=== PATIENT | female | born 1930 | race Caucasian/White ===

== ENCOUNTER 2017-06-21 21:40 | Inpatient (IN) | payer MEDICARE, MEDICAID ==
--- NOTE | 2017-06-21 22:14 | ED Physician Chart ---
ED Chief Complaint/HPI - Patient Information Date Seen:: 06/21/17 Time Seen:: 22:10 Chief Complaint:: increased agitation History of Present Illness:: Patient has been exhibiting increased agitation and anxiety at her long term facility. Historian:: Patient Review:: Nurse's Note Reviewed, Transfer documents Reviewed ED Review of Systems - Review of Systems General/Constitutional: No fever, No chills Skin: No skin lesions Head: No headache Eyes: No loss of vision ENT: No earache Neck: No neck pain Cardio Vascular: No chest pain, No palpitations GI: No nausea, No vomiting, No diarrhea G/U: No dysuria, No hematuria Musculoskeletal: No bone or joint pain Endocrine: No polyuria Psychiatric: Prior psych history Hematopoietic: No bruising Allergic/Immuno: No urticaria Neurological: No syncope ED Past Medical History - Past Medical History Past Medical History: Other (hyponatremia and hypo-osmolality) Family History: None Social History: Non Smoker, No Alcohol, Care Facility Surgical History: Appendectomy, other (tubal ligation) Psychiatricy History: Other (anxiety) Medication: Reviewed Family Medical History - Family Member Mother History Unknown: Yes ED Physical Exam - Physical Examination General/Constitutional: Well-developed, well-nourished, Alert, No distress Other Gen/Cons comments:: Alert and oriented to the correct date Head: Atraumatic Eyes: Lids, conjuctiva normal, PERRL Skin: Nl inspection, No rash, No skin lesions, No ecchymosis ENMT: External ears, nose nl, Oropharynx nl, Tonsils nl Other ENMT comments:: Edentulous Neck: No nuchal rigidity Respiratory: Nl effort/Exclusion, Clear to Auscultation, No Wheeze/Rhonchi/Rales Cardio Vascular: RRR, No murmur, gallop, rubs, NL S1 S2 GI: No tenderness/rebounding/guarding, No organomegaly, No hernia, Normal BS's : No CVA tenderness Extremities: Normal digits & nails Neuro/Psych: No focal deficits ED Labs/Radiology/EKG Results - Lab Results Results: Laboratory Results - last 24 hr 06/21/17 06/21/17 23:15 23:15 WBC 7.3 RBC 3.55 L Hgb 12.9 Hct 36.8 L MCV 103.5 H MCH 36.4 H MCHC Differential 35.1 RDW 12.3 Plt Count 305 MPV 6.3 Neutrophils % 62.3 Lymphocytes % 24.5 Monocytes % 8.7 Eosinophils % 3.6 Basophils % 0.9 Urine Source CLEAN C Urine Color YELLOW Urine Clarity HAZY Urine pH 6.0 Ur Specific [place] 1.025 Urine Protein TRACE Urine Glucose (UA) NEGATIVE Urine Ketones NEGATIVE Urine Blood NEGATIVE Urine Nitrate NEGATIVE Urine Bilirubin NEGATIVE Urine Urobilinogen 0.2 Ur Leukocyte Esterase TRACE H Urine RBC 0-2 Urine WBC 2-5 Ur Epithelial Cells MODERATE Urine Bacteria FEW - EKG Interpretations Rate & Rhythm: normal sinus rhythm with a rate of 72 [place]: left axis deviation Comments:: Right bundle-branch block ED Septic Shock - . Is Septic Shock (SBP<90, OR Lactate>4 mmol\L) present?: No ED Reassessment (Disposition) - Reassessment Reassessment Condition:: Unchanged - Diagnosis Diagnosis:: Agitation; hyponatremia; hypokalemia - Patient Disposition Admitted to:: [facility] Admitting Medical Physician:: Ernie Ramon Admitting Psych Physician:: Alexia Mckeon Condition at Disposition:: Unchanged
[2017-06-21 23:26] LABS: URINE MICROSCOPIC INDICATED? YES; URINE SOURCE CLEAN C
[2017-06-21 23:28] LABS: % BASOPHILS 0.9 % (0.0-2.0); % EOSINOPHILS 3.6 % (0.0-5.0); % LYMPHOCYTES 24.5 % (20.0-50.0); % MONOCYTES 8.7 % (2.0-10.0); % NEUTROPHILS 62.3 % (40.0-80.0); BASOPHILE ABSOLUTE 0.1 Th/cumm (0-0.2); EOSINOPHILE ABSOLUTE 0.3 Th/cmm (0.1-0.4); HEMATOCRIT 36.8 % (41.0-60); HEMOGLOBIN 12.9 gm/dL (12-16); LYMPHOCYTE ABSOLUTE 1.8 Th/cmm (1.5-3.0); MEAN CELL VOLUME 103.5 fl (81-100); MEAN CORPUSCULAR HEMOGLOBIN 36.4 pg (27.0-31.0); MEAN CORPUSCULAR HGB CONC 35.1 pg (28.0-36.0); MEAN PLATELET VOLUME 6.3 fl; MONOCYTE ABSOLUTE 0.6 Th/cmm (0.3-1.0); NEUTROPHILE ABSOLUTE 4.5 Th/cmm (1.8-8.0); PLATELET COUNT 305 Th/cmm (150-400); RED BLOOD COUNT 3.55 Mil/cmm (3.80-5.20); RED CELL DISTRIBUTION WIDTH 12.3 % (11.5-20.0); WHITE BLOOD COUNT 7.3 Th/cmm (4.8-10.8)
[2017-06-21 23:30] LABS: URINE BILIRUBIN NEGATIVE (NEGATIVE); URINE BLOOD NEGATIVE (NEGATIVE); URINE GLUCOSE (UA) NEGATIVE (NEGATIVE); URINE KETONE NEGATIVE (NEGATIVE); URINE LEUKOCYTE ESTERASE TRACE (NEGATIVE); URINE NITRATE NEGATIVE (NEGATIVE); URINE PROTEIN TRACE mg/dL (NEGATIVE); URINE UROBILINOGEN 0.2 E.U./dL (0.2 - 1.0)
[2017-06-21 23:44] LABS: URINE BACTERIA FEW /hpf (NONE SEEN); URINE CLARITY HAZY (CLEAR); URINE COLOR YELLOW; URINE EPITHELIAL CELLS MODERATE /lpf (FEW); URINE RBC 0-2 /hpf (0-5)
[2017-06-21 23:52] LABS: ALB/GLOB RATIO 1.2 (1.0-1.8); ALKALINE PHOSPHATASE 65 U/L (34-104); ANION GAP 10.1 (7.0-16.0); BILIRUBIN,TOTAL 0.5 mg/dL (0.3-1.0); BUN - UREA NITROGEN 23 mg/dL (7-25); CALCIUM SERUM 9.9 mg/dL (8.6-10.3); CARBON DIOXIDE 25.3 mEq/L (21.0-31.0); CHLORIDE 97 mEq/L (98-107); CHOLESTEROL 202 mg/dL (<200); CREATININE - SERUM 0.7 mg/dL (0.6-1.2); GLUCOSE 95 mg/dL (70-105); HDL -HIGH DENSITY LIPOPROTEIN 69 mg/dL (23-92); POTASSIUM SERUM 3.4 mEq/L (3.5-5.1); SGOT 15 U/L (13-39); SGPT/ALT 8 U/L (7-52); SODIUM SERUM 129 mEq/L (136-145); TOTAL PROTEIN,SERUM 7.4 gm/dL (6.0-8.3); TRIGLYCERIDES 78 mg/dL (<150)
[2017-06-22] MEDS ORDERED: Potassium Chloride 20 mEq ER Tab PO ONE ×2 (00:13→00:14)
[2017-06-22 01:37] VITALS: BP 120/93
[2017-06-22] MEDS ORDERED: Magnesium Hydroxide (MOM) 30 mL UDC PO PRN (03:35)
[2017-06-22] MEDS ORDERED: APAP/Codeine 300 mg/30 mg Tab PO PRN (03:35)
[2017-06-22 16:42] LABS: A1C % 5.3 % (4.0-6.0)
--- NOTE | 2017-06-23 02:59 | Psychosocial Evaluation ---
DATE OF SERVICE: 06/22/2017 IDENTIFYING DATA: The patient is an 86-year-old woman, resident of [facility]. Information obtained by directly interviewing the patient as well as reviewing the admission papers and they are reliable. JUSTIFICATION OF HOSPITALIZATION: The patient is admitted here on a voluntary basis and because of her acute agitation and paranoia. CHIEF COMPLAINT: "There are a lot many things are happening. I can tell you one thing, but they have to help me to go to the bathroom all the time." HISTORY OF PRESENT ILLNESS: This is the first psychiatric hospitalization to [facility] for this 86-year-old woman who is reported to have been having difficult time to cope with the stress. On the day of the hospitalization, the patient has been reported to have been acutely agitated and has been having difficult time to cope with the stress. The patient is reported to have been having difficult time to verbalize the concerns. The patient is getting easily frustrated. The patient is also noted to be very paranoid and has been mentioning that people have been bothering her a lot and she could not cope with it any longer. The patient is reported to have been getting easily frustrated. It is becoming very difficult to redirect the patient. The patient is fixated on her bowels and then lot of somatic complaints are coming forward. PAST PSYCHIATRIC HISTORY: Details are not known. MEDICAL HISTORY: Physical examination is requested to be done by Dr. Ramon. SUBSTANCE ABUSE HISTORY: None. PHYSICAL OR SEXUAL ABUSE HISTORY: None. LEGAL PROBLEMS: None at this time. STRENGTH AND ASSETS: The patient is motivated. MENTAL STATUS EXAMINATION: The patient is an 86-year-old woman looking her stated age, superficially cooperative. Eye contact is poor. Mood is irritable. Affect is constricted. The patient is religiously and somatically preoccupied. The patient is not able to contract for safety. The patient has been having difficult time to cope with the stress. Keeps on talking about that the need for her to go to the bathroom. The patient is motivated for treatment at this time. However, the patient has short-term as well as long-term memory deficits. Attention span and concentration are noted to be poor at this time. DIAGNOSTIC IMPRESSION: AXIS I: Psychotic disorder, not otherwise specified. AXIS IB: Dementia and behavioral change, secondary trait. AXIS II: None. AXIS III: As per Dr. Ramon. IMMEDIATE TREATMENT PLAN: The patient is going to be observed on inpatient unit, provided with supportive psychotherapy. The patient is going to be started on a low dose of the Seroquel and followed up. JOB# [id number]
--- NOTE | 2017-06-24 03:03 | Progress Notes ---
DATE: 06/23/2017 PSYCHIATRIC PROGRESS NOTE SUBJECTIVE: Staff was spoken to. The patient is interviewed. Mood is irritable. Affect is constricted. The patient is somatically preoccupied and has been asking to take the staff to the bathroom very frequently. The patient has no insight into her illness. The patient has been having difficult time to articulate her needs. The patient's short as well as long-term memory both are noted to be impaired. ASSESSMENT: The patient is still paranoid and demented. PLAN: To continue the patient with the current medications and followup. JOB# [id number]
--- NOTE | 2017-06-25 02:34 | Consultation ---
DATE OF CONSULTATION: 06/23/2017 REQUESTING PHYSICIAN: Alexia Mckeon M.D. TYPE OF CONSULTATION: Psychology. HISTORY OF PRESENT ILLNESS: The following is by review of the medical record and by patient self report. According to record review, the patient is an 86-year-old female who was a resident of [facility]. The patient is being admitted because of acute agitation and paranoia. Staff at the patient's facility reports she had been getting easily frustrated and becoming difficult to redirect. The patient presents as easily agitated and having difficulty coping with stress. Upon interview, there seems to be perseveration on the patient's physical complaints. There is some evidence that perhaps these are somatic. The patient was focused on her GI functioning. The patient stated that she had become bothered by people at her facility and perhaps worried about the decline in her overall functioning. She denied any suicidal ideation, plan or intention. The patient did endorse the idea of helplessness and hopelessness. PAST MEDICAL HISTORY: Please see history and physical by Dr. Ramon. PAST PSYCHIATRIC HISTORY: Unknown at the time of this interview. MEDICATIONS: Please see admission reconciliation. ALLERGIES: No known drug allergies. SUBSTANCE ABUSE HISTORY: The patient denied any history. PSYCHOSOCIAL HISTORY: The patient is a resident of [facility]. The patient did not answer questions about family history. The patient did not answer questions about occupational or educational history. The patient states that she is a Confucianism. The patient states she does not want to return to her shelter facility. medical services coordinator has been informed. MENTAL STATUS EXAMINATION: The patient appears to be her stated age. The patient's attitude is superficially cooperative. Eye contact is poor. Speech is spontaneous, but slow at times. The patient has intermittent episodes of becoming loud. Mood is irritable. Affect is constricted. Thought process shows to be perseverated on her medical condition. The patient denied any auditory or visual hallucinations. She denies any suicidal ideation, plan or intention. However, the patient seems to have focused on religiosity and sheri-based beliefs to explain her current circumstances. The patient is stating that she seems to be having trouble with her bowel movement and asked for the LOCAL HAZMAT DRIVER to take her to the bathroom. The patient is passively accepting treatment. Impulse control is fair to poor. Concentration is poor. The patient did not perform serial 3 subtractions. The patient was unable to sustain focus and attention. The patient was minimally cognitively redirectable due to the perseveration on possible somatic complaints. The patient did not perform the memory evaluation. Immediate, short-term and long-term memory seem to be impaired. This needs further evaluation. Sensorium is alert and oriented to self and person only. The patient did not participate in the interpretation of proverbs. Insight is poor. Judgment is compromised. DIAGNOSTIC IMPRESSION: AXIS I: 1. Psychotic disorder, not otherwise specified. 2. Dementia with behavioral disturbance. AXIS II: Deferred. AXIS III: Please see history and physical by Dr. Ramon. TREATMENT PLAN: The patient has been seen by Dr. Mckeon for psychiatric evaluation and for the management of the patient's psychotropic medications. We will provide supportive therapy to include reality integration and reality orientation. We will provide a simple de-escalation skill for the patient to increase her ability to cope with stress. We will include stress management to increase the patient's frustration tolerance. We will provide coping strategies for phase of life issues. We will continue to provide motivational enhancement for the patient to become compliant and stay compliant with all aspects of her care and treatment plan during her hospital stay and prior to discharge. Thank you, Dr. Mckeon, for this consult and the opportunity to participate with you in your patient's care. JOB# [id number] [email or web address]
--- NOTE | 2017-06-25 03:48 | Progress Notes ---
DATE: 06/24/2017 SUBJECTIVE: Staff was spoken to. The patient is interviewed. Mood is noted to be irritable. Affect is constricted. Coping skills are noted to be very poor. The patient has been fixated on her bowels and the patient in 1 minute stating that she is constipated, she needs to be taken to the bathroom, and in the next minute, the patient has been stating that she has been having diarrhea. The patient has no insight into her illness. ASSESSMENT: The patient is still grossly psychotic. PLAN: To continue the patient with the supportive therapy. I encouraged the patient to verbalize the concerns rather than to act out. The patient has been placed on the Seroquel 12.5 mg, which is going to be gradually increased to 25 mg today in view of her paranoia and the patient is going to be followed up. JOB# [id number]
--- NOTE | 2017-06-26 01:34 | Progress Notes ---
DATE: 06/25/2017 SUBJECTIVE: Staff was spoken to. The patient is interviewed. Mood is noted to be irritable. Affect is constricted. Insight and judgment at this time are noted to be still impaired. Impulse control seems to be limited. Coping skills are noted to be very limited. The patient has been having difficult time to cope with the stress. The patient is somatically preoccupied. The patient has short-term memory deficits. Long-term memory seems to be fair today. ASSESSMENT: The patient is still depressed and psychotic. PLAN: To continue the patient with the supportive therapy. I encouraged the patient to verbalize the concerns rather than to act out. JOB# [id number]
--- NOTE | 2017-06-27 01:27 | Progress Notes ---
DATE: 06/26/2017 SUBJECTIVE: Staff was spoken to. The patient is interviewed. Mood is noted to be anxious. The patient's coping skills are noted to be very poor. The patient has been preoccupied with the bowel movement. The patient has been stating that she needs to go to the toilet so many times and no one is helping her. The patient's insight and judgment at this time are noted to be still impaired. No side effects to the medications are noted. ASSESSMENT: The patient is still paranoid and demented. PLAN: To continue the patient with the current medications and followup. JOB# [id number]
--- NOTE | 2017-06-27 18:49 | History & Physical ---
ADMIT DATE: 06/22/2017 HISTORY OF PRESENT ILLNESS: The patient is an 86-year-old female seen at [facility]. PAST MEDICAL HISTORY: Significant for possible coronary artery disease, peptic ulcer disease, gastritis, arthritis, and urinary urgency. SOCIAL HISTORY: No smoking, no alcohol abuse. OBSTETRIC HISTORY: P2 +0. Menses, postmenopausal. REVIEW OF SYSTEMS: No obvious vomiting, diarrhea, melena or hematochezia. The patient does have urinary urgency. Denies any fever, any hematuria or burning in urine. PHYSICAL EXAMINATION: GENERAL: Average female, in no obvious respiratory distress. VITAL SIGNS: Include a blood pressure of 140/80, heart rate 80, respiration rate of 18. SKIN: Showed no obvious cellulitis. HEENT: Normal conjunctivae. NECK: Supple. LUNGS: Show clear. HEART: First and second present. ABDOMEN: Soft, bowel sounds present. EXTREMITIES: Show arthritis. NEUROLOGIC: The patient has no focal motor deficit. LABORATORY DATA: Include white count 7.3, hemoglobin 12.9, hematocrit 36.8, platelet count 129, platelet count 305. Sodium 129, potassium 3.4, chloride 97, bicarbonate 25.3, BUN 23, creatinine 0.7, glucose 95. MEDICAL DIAGNOSES: Include hyponatremia, hypokalemia, coronary artery disease, peptic ulcer disease, gastritis, arthritis, osteoporosis and urinary urgency. TREATMENT PLAN: Sodium will be supplemented. Potassium will be supplemented. The patient will be started on Detrol-LA. Thank you, Dr. Mckeon for letting me to see your patient. JOB# [id number]
--- NOTE | 2017-06-28 03:39 | Progress Notes ---
DATE: 06/27/2017 SUBJECTIVE: Staff was spoken to. The patient is interviewed. Mood is noted to be dysphoric. Coping skills are noted to be poor. Insight and judgment are also noted very much impaired. No side effects to medications are noted. The patient has been having difficult time to cope with the stress. ASSESSMENT: The patient is still psychotic and somatically fixated. PLAN: To continue the patient with the current medications and follow her up. [facility]# [id number]
[2017-06-28 07:16] LABS: EOSINOPHILE ABSOLUTE 0.2 Th/cmm (0.1-0.4); HEMATOCRIT 34.8 % (41.0-60); HEMOGLOBIN 11.7 gm/dL (12-16); LYMPHOCYTE ABSOLUTE 0.8 Th/cmm (1.5-3.0); MANUAL DIFF REQUIRED? YES; MEAN CELL VOLUME 103.6 fl (81-100); MEAN CORPUSCULAR HEMOGLOBIN 34.7 pg (27.0-31.0); MEAN CORPUSCULAR HGB CONC 33.5 pg (28.0-36.0); MEAN PLATELET VOLUME 6.4 fl; MONOCYTE ABSOLUTE 0.6 Th/cmm (0.3-1.0); NEUTROPHILE ABSOLUTE 2.1 Th/cmm (1.8-8.0); PLATELET COUNT 283 Th/cmm (150-400); RED BLOOD COUNT 3.36 Mil/cmm (3.80-5.20); RED CELL DISTRIBUTION WIDTH 11.9 % (11.5-20.0)
[2017-06-28 07:28] LABS: WHITE BLOOD COUNT 3.7 Th/cmm (4.8-10.8)
[2017-06-28 07:46] LABS: ANION GAP 11.4 (7.0-16.0); BUN - UREA NITROGEN 15 mg/dL (7-25); CALCIUM SERUM 9.5 mg/dL (8.6-10.3); CARBON DIOXIDE 24.1 mEq/L (21.0-31.0); CHLORIDE 98 mEq/L (98-107); CREATININE - SERUM 0.6 mg/dL (0.6-1.2); GLUCOSE 89 mg/dL (70-105); POTASSIUM SERUM 3.5 mEq/L (3.5-5.1); SODIUM SERUM 130 mEq/L (136-145)
[2017-06-28 07:57] LABS: BASOPHIL 1 % (0-3); EOSINOPHIL 3 % (0-5); LYMPHOCYTE 25 % (20-50); MONOCYTE 7 % (2-10); NEUTROPHILS 64 % (40-80); PLATELET ESTIMATE ADEQUATE (NORMAL); TOTAL CELLS COUNTED 100
[2017-06-28] MEDS ORDERED: Tolterodine Tartrate 4 mg ER Cap PO SCH (09:00)
[2017-06-28] MEDS ORDERED: guaiFENesin 200 MG/10 ML UDC PO PRN (15:46)
--- NOTE | 2017-06-29 04:13 | Progress Notes ---
DATE: 06/27/2017 SUBJECTIVE: Staff was spoken. The patient is interviewed. Mood is noted to be anxious. Affect is appropriate. Insight is admitted to be improving. Impulse control seems to be fair. No psychiatric medications ____. The patient has been able to verbalize the concerns rather than to act out at the time of the discharge process. ASSESSMENT: The patient is stabilizing. PLAN: To discharge the patient today for followup on outpatient basis. JOB# [id number]
== END 2017-06-28 19:00 | DRG 885 ==
LOC: ER 21:40 → GERO2 06-22 00:12
PROVIDERS: ADMIT Psychiatry & Neurology Psychiatry; ATTEND Psychiatry & Neurology Psychiatry
DX: F29 Unspecified psychosis not due to a substance or known physiological condition (principal); E87.1 Hypo-osmolality and hyponatremia; F03.91 Unspecified dementia, unspecified severity, with behavioral disturbance; I45.10 Unspecified right bundle-branch block; E87.6 Hypokalemia; Z98.51 Tubal ligation status; R45.1 Restlessness and agitation; I25.10 Atherosclerotic heart disease of native coronary artery without angina pectoris; K27.9 Peptic ulcer, site unspecified, unspecified as acute or chronic, without hemorrhage or perforation; K29.70 Gastritis, unspecified, without bleeding; M19.90 Unspecified osteoarthritis, unspecified site; M81.0 Age-related osteoporosis without current pathological fracture; R39.15 Urgency of urination
CPT/HCPCS: 36415-UA; 80048-TC; 80053-TC; 80061-TC; 81001-TC; 83036-90; 84443-TC; 85007-TC; 85025-TC; 85027-TC; 86592-TC; 93005; Z7610

== ENCOUNTER 2018-01-02 11:05 | Inpatient (IN) | payer MEDICARE, OTHER ==
--- NOTE | 2018-01-02 11:28 | ED Physician Chart ---
ED Chief Complaint/HPI - Patient Information Date Seen:: 01/02/18 Time Seen:: 11:00 Chief Complaint:: Agitation History of Present Illness:: onset x 3 days of agitation and aggressive behavior; no report of trauma, H/As, S/T, neck pain, C/P, SOB, cough, Abd. Pain, A/N/V/D/C, fever, chills, or urinary s/s; no SIs Allergies:: Allergies Allergy/AdvReac Type Severity Reaction Status Date / Time No Known Allergies Allergy Verified 01/02/18 11:21 Historian:: Patient, EMS Review:: Nurse's Note Reviewed, Old Chart Reviewed, EMS run form Reviewed ED Review of Systems - Review of Systems General/Constitutional: No fever, No chills, No weight loss, No weakness, No diaphoresis, No edema, No loss of appetite Skin: No skin lesions, No rash, No bruising Head: No headache, No light-headedness Eyes: No loss of vision, No pain, No diplopia ENT: No earache, No nasal drainage, No sore throat, No tinnitus Neck: No neck pain, No swelling, No thyromegaly, No stiffness, No mass noted Cardio Vascular: No chest pain, No palpitations, No PND, No orthopnea, No edema Pulmonary: No SOB, No cough, No sputum, No wheezing GI: No nausea, No vomiting, No diarrhea, No pain, No melena, No hematochezia, No constipation, No hematemesis G/U: No dysuria, No frequency, No hematuria, No nacturia Brand Advisor: No vaginal discharge, No abnormal vaginal bleed, No contraction Musculoskeletal: No bone or joint pain, No back pain, No muscle pain Endocrine: No polyuria, No polydipsia Psychiatric: Prior psych history, Depression, Anxiety, No suicidal ideation, No homicidal ideation, No auditory hallucination, No visual hallucination Hematopoietic: No bruising, No lymphadenopathy Allergic/Immuno: No urticaria, No angioedema Neurological: No syncope, No focal symptoms, No weakness, No paresthesia, No headache, No seizure, No dizziness, Confusion, No vertigo ED Past Medical History - Past Medical History Obtainable: Yes Past Medical History: HTN, Dyslipidemia, Arthritis, Dementia Family History: HTN Social History: Non Smoker, No Alcohol, No Drug Use, , Care Facility Surgical History: None Psychiatricy History: Bipolar, Dementia Medication: Reviewed Family Medical History - Family Member Mother History Unknown: Yes Ethnicity: Unknown Living Status: Unknown Hx Family Cancer: (unknown) Hx Family Coronary Artery Disease: (unknown) Hx Family Congestive Heart Failure: (unknown) Hx Family Hypertension: (unknown) Hx Family Stroke: (unknown) Hx Family Diabetes: (unknown) Hx Family Seizures: (unknown) Hx Family Dementia: (unknown) Hx Family AIDS: (unknown) Hx Family HIV: No Hx Family COPD: (unknown) Hx Family Hepatitis: (unknown) Hx Family Psychiatric Problems: (unknown) Hx Family Tuberculosis: (unknown) ED Physical Exam - Physical Examination General/Constitutional: Awake, Well-developed, well-nourished, Alert, No distress, GCS 15, Non-toxic appearing, Ambulatory Head: Atraumatic Eyes: Lids, conjuctiva normal, PERRL, EOMI Skin: Nl inspection, No rash, No skin lesions, No ecchymosis, Well hydrated, No lymphadenopathy ENMT: External ears, nose nl, TM canals nl, Nasal exam nl, Lips, teeth, gums nl , Oropharynx nl, Tonsils nl Neck: Nontender, Full ROM w/o pain, No JVD, No nuchal rigidity, No bruit, No mass, No stridor Respiratory: Nl effort/Exclusion, Clear to Auscultation, No Wheeze/Rhonchi/Rales Cardio Vascular: RRR, No murmur, gallop, rubs, NL S1 S2, Carotid/Femoral/Distal pulses equal bilaterally GI: No tenderness/rebounding/guarding, No organomegaly, No hernia, Normal BS's, Nondistended, No mass/bruits, No McBurney tenderness : No CVA tenderness Extremities: No tenderness or effusion, Full ROM, normal strength in all extremities, No edema, Normal digits & nails Neuro/Psych: Alert/oriented, DTR's symmetric, Normal sensory exam, Normal motor strength, Judgement/insight normal, Mood normal, Normal gait, No focal deficits Other Neuro/Psych comments:: + Psychomotor Agitation; no SIs; Mood/Affect: Labile; Disoriented and Confused Misc: Normal back, No paraspinal tenderness ED Labs/Radiology/EKG Results - Lab Results Comments:: Reviewed - EKG Interpretations EKG Time:: 11:23 Rate & Rhythm: 94; NSR Comments:: non-specific st-t changes ED Septic Shock - . Is Septic Shock (SBP<90, OR Lactate>4 mmol\L) present?: No ED Reassessment (Disposition) - Reassessment Reassessment Condition:: Improved - Diagnosis Diagnosis:: Dx: Agitation; Psychosis; Medical Clearance; Dementia; Bipolar Disordeer - Aftercare/Follow up Instructions Aftercare/Follow-Up Instructions:: Counseled pt regarding lab results/diagnosis & need follow up, Counseled pt & family regarding lab results/diagnosis & need follow up - Patient Disposition Discharge/Transfer:: Acute Care w/in this hosp Admitted to:: [facility] Condition at Disposition:: Stable, Improved
[2018-01-02 11:43] LABS: % BASOPHILS 1.1 % (0.0-2.0); % EOSINOPHILS 1.7 % (0.0-5.0); % LYMPHOCYTES 17.2 % (20.0-50.0); % MONOCYTES 7.7 % (2.0-10.0); % NEUTROPHILS 72.3 % (40.0-80.0); BASOPHILE ABSOLUTE 0.1 Th/cumm (0-0.2); EOSINOPHILE ABSOLUTE 0.1 Th/cmm (0.1-0.4); HEMATOCRIT 34.9 % (41.0-60); HEMOGLOBIN 11.8 gm/dL (12-16); MEAN CELL VOLUME 101.5 fl (81-100); MEAN CORPUSCULAR HEMOGLOBIN 34.5 pg (27.0-31.0); MONOCYTE ABSOLUTE 0.5 Th/cmm (0.3-1.0); NEUTROPHILE ABSOLUTE 4.3 Th/cmm (1.8-8.0); PLATELET COUNT 350 Th/cmm (150-400); RED BLOOD COUNT 3.43 Mil/cmm (3.80-5.20); RED CELL DISTRIBUTION WIDTH 11.6 % (11.5-20.0)
[2018-01-02 11:47] LABS: URINE SOURCE CLEAN C
[2018-01-02 11:49] LABS: URINE BILIRUBIN NEGATIVE (NEGATIVE); URINE BLOOD NEGATIVE (NEGATIVE); URINE GLUCOSE (UA) NEGATIVE (NEGATIVE); URINE KETONE NEGATIVE (NEGATIVE); URINE LEUKOCYTE ESTERASE NEGATIVE (NEGATIVE); URINE NITRATE NEGATIVE (NEGATIVE); URINE PROTEIN NEGATIVE (NEGATIVE); URINE UROBILINOGEN 0.2 E.U./dL (0.2 - 1.0)
[2018-01-02 11:53] LABS: URINE CLARITY CLEAR (CLEAR); URINE COLOR YELLOW; URINE MICROSCOPIC INDICATED? NO
[2018-01-02 12:02] LABS: ACETAMINOPHEN < 10.0 ug/mL (10.0-30.0); ALB/GLOB RATIO 1.1 (1.0-1.8); ALBUMIN 3.9 gm/dL (3.7-5.3); ALKALINE PHOSPHATASE 58 U/L (34-104); ANION GAP 12.4 (7.0-16.0); BILIRUBIN,TOTAL 0.4 mg/dL (0.3-1.0); BUN - UREA NITROGEN 21 mg/dL (7-25); CALCIUM SERUM 9.9 mg/dL (8.6-10.3); CARBON DIOXIDE 22.3 mEq/L (21.0-31.0); CHLORIDE 98 mEq/L (98-107); CHOLESTEROL 148 mg/dL (<200); CREATININE - SERUM 0.7 mg/dL (0.6-1.2); GLUCOSE 93 mg/dL (70-105); HDL -HIGH DENSITY LIPOPROTEIN 47 mg/dL (23-92); POTASSIUM SERUM 3.7 mEq/L (3.5-5.1); SALICYLATES (ASPIRIN) < 25.0 mg/L (30.0-100.0); SGOT 15 U/L (13-39); SGPT/ALT 8 U/L (7-52); SODIUM SERUM 129 mEq/L (136-145); TOTAL PROTEIN,SERUM 7.4 gm/dL (6.0-8.3); TRIGLYCERIDES 69 mg/dL (<150)
[2018-01-02 12:18] LABS: AMPHETAMINE URINE NEGATIVE (NEGATIVE); BARBITURATES URINE NEGATIVE (NEGATIVE); BENZODIAZEPINES QUAL URINE POSITIVE (NEGATIVE); CANNABINOID THC NEGATIVE (NEGATIVE); COCAINE METABOLITE QUAL URINE NEGATIVE (NEGATIVE); METHADONE URINE NEGATIVE (NEGATIVE); METHAMPHETAMINES QUAL URINE NEGATIVE (NEGATIVE); OPIATES (MORPHINE) QUAL. URINE POSITIVE (NEGATIVE); PHENCYCLIDINE (PCP) URINE NEGATIVE (NEGATIVE); TRICYCLICS (TCA) QUAL. URINE NEGATIVE (NEGATIVE)
[2018-01-02 13:26] VITALS: BP 165/118
[2018-01-02 13:46] LABS: CHOLESTEROL 149 mg/dL (<200); HDL -HIGH DENSITY LIPOPROTEIN 48 mg/dL (23-92); TRIGLYCERIDES 70 mg/dL (<150)
[2018-01-02] MEDS ORDERED: Magnesium Hydroxide (MOM) 30 mL UDC PO PRN (16:16)
[2018-01-02] MEDS ORDERED: APAP/Codeine 300 mg/30 mg Tab PO PRN (16:16)
[2018-01-02] MEDS ORDERED: Non-Formulary Item 1 EA (Cranberry [Cranberry] 400 MG) PO SCH (17:00)
--- NOTE | 2018-01-02 22:29 | Psychiatric Evaluation ---
DATE OF SERVICE: 01/02/2018 IDENTIFYING DATA: The patient is an 87-year-old woman, resident of the [facility]. Information obtained directly by interviewing the patient as well as reviewing the admission papers. JUSTIFICATION OF HOSPITALIZATION: The patient is admitted on a voluntary basis in view of her acute agitation, anxiety, and paranoia. CHIEF COMPLAINT: "I am anxious. I cannot tell you what is going on." HISTORY OF PRESENT ILLNESS: This is one of multiple psychiatric hospitalizations for this patient, who was under my care in June. The patient has been diagnosed to have Psychotic disorder, not otherwise specified and also schizophrenia, chronic paranoid type and has been maintained on Zyprexa. On the day of the hospitalization, the patient has been getting easily irritable, angry and has been acutely anxious and could not be redirected and the patient has been very paranoid and has been worrying about the people who are trying to do things behind her back. The patient is not able to care for self. The patient is getting easily frustrated and hence the patient has been reported over here for further stabilization. Sleep and appetite prior to the hospitalization are reported to be poor. PAST PSYCHIATRIC HISTORY: Please refer to the above. MEDICAL HISTORY: Physical examination is requested to be done by Dr. Ramon. SUBSTANCE ABUSE HISTORY: None. PHYSICAL OR SEXUAL ABUSE HISTORY: None. LEGAL PROBLEMS: None at this time. STRENGTH AND ASSETS: The patient is motivated. LIABILITIES: Poor coping skills. MENTAL STATUS EXAMINATION: The patient is an 87-year-old thin built, superficially cooperative. Mood is noted to be irritable. Affect is constricted. The patient is somatically preoccupied. The patient has paranoid delusions. Attention span and concentration are noted to be very poor. The patient is preoccupied with her bowels. Short and long-term memory are noted to be very poor at this time. The patient is paranoid and is not able to contract for safety and the patient is also noted to be acutely anxious. DIAGNOSTIC IMPRESSION: AXIS I: Psychotic disorder, not otherwise specified. IB. Dementia and behavioral change secondary to dementia. AXIS II: None. AXIS III: As per Dr. Ramon. IMMEDIATE TREATMENT PLAN: The patient is going to be observed on inpatient unit, provided with supportive psychotherapy. The patient is going to be continued on the Zyprexa that she has been continuing. The patient is going to be closely monitored. Once stabilized, the patient is going to be discharged to self to be followed up on an outpatient basis. JOB# [id number]
--- NOTE | 2018-01-02 22:52 | History & Physical ---
ADMIT DATE: 01/02/2018 INTERNAL MEDICINE CONSULTATION The patient is a 87-year-old female known to me. PAST MEDICAL HISTORY: Significant for hypertension, coronary artery disease, peptic ulcer disease, gastritis, arthritis, anemia, and urinary urgency. SOCIAL HISTORY: No history of smoking, alcohol abuse. FAMILY HISTORY: Not available. OBSTETRIC HISTORY: P2+0, menses postmenopausal. REVIEW OF SYSTEMS: The patient has no chest pain. The patient had extensive arthritic pain. No short of breath. No nausea, no vomiting. PHYSICAL EXAMINATION: GENERAL: Average female in no obvious respiratory distress. VITAL SIGNS: Include blood pressure 140/80, heart rate 80, respiration rate of 18. SKIN: No cellulitis. HEENT: Normal conjunctivae. NECK: Supple. LUNGS: Clear. HEART: First and second heart sounds are normal. No gallop. Systolic present. ABDOMEN: Soft, minimal epigastric tenderness. Bowel sounds present. EXTREMITIES: Show arthritis. NEUROLOGIC: The patient has no focal motor deficits. LABORATORY DATA: CBC, white count 6, hemoglobin 11.8, hematocrit 34.9, platelet count of 350. Sodium 129, potassium 3.7, chloride 98, bicarbonate 22.3, BUN 21, creatinine 0.7, blood sugar 93. LFTs are remarkable. Urinalysis negative. ADMITTING DIAGNOSES: Include hypertension, hyponatremia, urinary urgency, arthritis, coronary artery disease, peptic ulcer disease, gastritis and anemia. TREATMENT PLAN: The patient's current medicines include losartan 100 mg daily, milk of magnesia, Colace, Dulcolax, Tylenol No. 3. JOB# [id number]
[2018-01-03] MEDS: Multivitamin Tab PO SCH (09:21)
[2018-01-03] MEDS: Tolterodine Tartrate 4 mg ER Cap PO SCH (09:21)
--- NOTE | 2018-01-03 12:29 | Progress Notes ---
DATE: 01/03/2018 SUBJECTIVE: Staff was spoken to. The patient is interviewed. Mood is noted to be irritable. Affect is constricted. Coping skills are noted to be poor. The patient is on 2.5 mg of Zyprexa and 50 mg of the Seroquel, mirtazapine at night time and has been able to tolerate the medication, but the patient appears to be too sleepy and hence I have decided to cut the dose on the mirtazapine to 7.5 mg and follow the patient up. JOB# [id number]
--- NOTE | 2018-01-03 21:28 | Progress Notes ---
DATE: 01/03/2018 SUBJECTIVE: An 87-year-old female with past medical history significant for hypertension, arthritis, peptic ulcer disease, anemia, hyponatremia, hyperlipidemia. Chief complaint, none. No new symptoms. No chest pain, no shortness of breath. No nausea, no vomiting. OBJECTIVE: VITAL SIGNS: Stable. LUNGS: Clear. HEART: First and second heart sounds are normal. No gallop. Systolic present. ABDOMEN: Soft. Bowel sounds present. EXTREMITIES: Show arthritis. NEUROLOGIC: The patient has dementia. MEDICAL DIAGNOSES: Remain the same. PLAN: Continue medical management. Psych consult reviewed. JOB# [id number]
[2018-01-04] MEDS: Multivitamin Tab PO SCH (09:58)
[2018-01-04] MEDS: Tolterodine Tartrate 4 mg ER Cap PO SCH (09:58)
--- NOTE | 2018-01-04 12:13 | Progress Notes ---
DATE: 01/04/2018 SUBJECTIVE: Staff was spoken to. The patient is interviewed. Mood is noted to be anxious and depressed. Affect is constricted. The patient is isolative and withdrawn. Insight and judgment at this time are noted to be still impaired. The patient is currently on olanzapine and mirtazapine and no major aggressive behavior problems are noted, but patient has been very quiet and has been able to participate in any of the groups in view of her drowsiness. It is decided to discontinue the Zyprexa for now and then continue the patient only on Remeron and follow the patient with the supportive therapy. JOB# [id number]
--- NOTE | 2018-01-04 21:16 | Consultation ---
DATE OF CONSULTATION: 01/04/2018 REFERRING PHYSICIAN: Alexia Mckeon M.D. TYPE OF CONSULTATION: Psychology. HISTORY OF PRESENT ILLNESS: The patient is an 87-year-old female. The patient is a resident of [facility]. The following is by record review and by the patient's self report. The patient is being admitted on a voluntary basis due to acute agitation, anxiety, and paranoia. According to the staff at the patient's facility, the staff reports that the patient had become irritable and claiming that people are trying to do things behind her back, therefore possible paranoid ideation. The patient's frustration tolerance was inadequate and the patient was exhibiting increased anxiety. Therefore, transfer for inpatient hospitalization was recommended for stabilization. Upon interview, the patient presents as irritable and anxious and difficult to cognitively and behaviorally redirect. The patient denied any suicidal ideation, plan or intention at the time of the clinical interview. PAST MEDICAL HISTORY: Please see history and physical by Dr. Ramon. PAST PSYCHIATRIC HISTORY: According to record review, the patient has a history of dementia. No other records are available or details provided. SUBSTANCE ABUSE HISTORY: The patient denies any history. PSYCHOSOCIAL HISTORY: The patient did not answer questions about occupational or educational history or taoism affiliation. The patient did not answer questions about history of physical or sexual abuse or current legal problems. The patient did not answer questions about a current support system including marital status, whether the patient has children or if there is other family relationships and support. MENTAL STATUS EXAMINATION: The patient appears to be her stated age. The patient appears to be frail. Attitude is superficially cooperative. Mood is irritable and angry. Affect is constricted. The patient is complaining about multiple physical complaints. Eye contact is poor. Speech is pressured. The patient's thought process shows to be markedly tangential with possible paranoid delusions. The patient denied any auditory or visual hallucinations. The patient denied any suicidal ideation, plan or intention. The patient, however, is unable to verbally contract for safety. Behavior is poorly redirectable on the unit according to staff. Impulse control is inadequate. Concentration is poor. The patient did not participate in the memory assessment. It appears immediate memory is impaired. long-term and short term memory need further evaluation. Sensorium is alert and oriented to place and self only. The patient did not participate in the interpretation of proverbs. Insight is poor. Judgment is poor. DIAGNOSTIC IMPRESSION: AXIS I: 1. Psychotic disorder, not otherwise specified. 2. Dementia with behavioral disturbance. AXIS II: Deferred. AXIS III: Per Dr. Ramon. TREATMENT PLAN: The patient has been seen by Dr. Mckeon for psychiatric evaluation and for the management of the patient's psychotropic medications. We will provide supportive psychotherapy to include reality orientation, differentiation, and integration. According to the attending and admitting psychiatrist, the patient is being continued on Zyprexa and will be closely monitored. We will provide coping strategies for phase of life issues. We will provide motivational enhancement for the patient to become compliant and stay compliant with all aspects of her care and treatment. We will encourage the patient to be able to demonstrate emotional and self-regulation prior to her discharge. We will provide daily opportunities for the patient to verbally contract for safety. We will provide stress management as well as limit setting and de-escalation to assist the patient in increasing her frustration tolerance as well as deescalate her anger outbursts. We will continue to provide supportive therapy including coping skills. Thank you, Dr. Mckeon for this consult and the opportunity to participate in this patient's care. JOB# [id number] BRUNA
--- NOTE | 2018-01-05 08:21 | Progress Notes ---
DATE: 01/05/2018 INTERNAL MEDICINE CONSULTATION FOLLOWUP SUBJECTIVE: The patient is an 87-year-old female. Current medical problems include hypertension, arthritis, peptic ulcer disease, coronary artery disease, urinary urgency, anemia. The patient also getting treatment for hyponatremia. CHIEF COMPLAINT: No chest pain, no shortness of breath, no nausea, no vomiting, no melena, no hematochezia. OBJECTIVE: VITAL SIGNS: Stable. LUNGS: Clear. HEART: First and second heart sounds are normal. No gallops. Systolic present. ABDOMEN: Soft. Bowel sounds good. EXTREMITIES: Show arthritis. NEUROLOGIC: The patient has no additional deficit. MEDICAL DIAGNOSES: Remain the same. PLAN: Continue current medical management. Psych consult reviewed. JOB# [id number]
[2018-01-05] MEDS: Multivitamin Tab PO SCH (09:31)
[2018-01-05] MEDS: Tolterodine Tartrate 4 mg ER Cap PO SCH (09:32)
--- NOTE | 2018-01-05 16:02 | Progress Notes ---
DATE: 01/05/2018 PSYCHIATRIC PROGRESS NOTE PROGRESS ON THE UNIT: Staff was spoken to. The patient is interviewed. The patient is a little bit alert today compared to the other day when she had been on Zyprexa and mirtazapine combination. Mood is noted to be still depressed. The patient's coping skills are noted to be poor. No side effects to the medications are noted. ASSESSMENT: The patient is still depressed. PLAN: To continue the patient with mirtazapine and follow the patient up. JOB# [id number]
--- NOTE | 2018-01-06 07:06 | Progress Notes ---
DATE: 01/06/2018 INTERNAL MEDICINE CONSULTATION FOLLOWUP SUBJECTIVE: The patient is an 87-year-old female. Current medical problems include hypertension, coronary artery disease, arthritis, peptic ulcer disease and anemia. The patient is also being treated for hyponatremia. No new symptoms. OBJECTIVE: VITAL SIGNS: Stable. LUNGS: Clear. HEART: First and second heart sounds are normal. No gallops. Systolic present. ABDOMEN: Soft. Bowel sounds are present and good. EXTREMITIES: Show arthritis. NEUROLOGIC: The patient has dementia. No additional symptoms. MEDICAL DIAGNOSIS: Remain same. PLAN: Continue current medical management. JOB# [id number]
[2018-01-06] MEDS: Multivitamin Tab PO SCH (09:05)
[2018-01-06] MEDS: Tolterodine Tartrate 4 mg ER Cap PO SCH (10:07)
--- NOTE | 2018-01-06 20:36 | Progress Notes ---
DATE: 01/06/2018 PSYCHIATRIC PROGRESS NOTE SUBJECTIVE: Staff was spoken to. The patient is interviewed. Mood is noted to be irritable. Affect is constricted. The patient is still depressed, isolative and withdrawn. No aggressive behavior is noted today. Sleep is noted to be fair. Appetite is noted to be poor. ASSESSMENT: The patient is depressed and aggressive behavior is coming under control. PLAN: To continue the patient with the supportive therapy, encouraged the patient to verbalize the concerns rather than to act out. JOB# [id number]
[2018-01-07] MEDS: Multivitamin Tab PO SCH (09:18)
[2018-01-07] MEDS: Tolterodine Tartrate 4 mg ER Cap PO SCH (09:18)
[2018-01-07] MEDS ORDERED: Clindamycin 150 mg/mL 4mL Vial ONE (21:41)
--- NOTE | 2018-01-08 02:20 | Progress Notes ---
DATE: 01/07/2018 PSYCHIATRIC PROGRESS NOTE SUBJECTIVE: Staff was spoken to. The patient is interviewed. Mood is noted to be irritable. Affect is constricted. The patient has paranoia. The patient is testing the limits today. No side effects to the medications are noted. The patient has been taken off of the Zyprexa in view of her sedation. Since the patient is getting agitated and paranoid, it is decided to start the patient on low dose of Seroquel, which is going to be given at 12.5 mg at bedtime. PLAN: The patient is going to be followed up with the supportive therapy. The patient is not ready to be discharged at this time because of her paranoia and agitation. JOB# [id number]
[2018-01-08] MEDS: Multivitamin Tab PO SCH (09:45)
[2018-01-08] MEDS: Tolterodine Tartrate 4 mg ER Cap PO SCH (09:45)
--- NOTE | 2018-01-08 12:59 | Progress Notes ---
DATE: 01/08/2018 SUBJECTIVE: Staff was spoken to. The patient is interviewed. Mood is noted to be less irritable. Affect is appropriate. The patient is not presenting with any major behavior problems. Insight and judgment at this time are noted to be improving. Impulse control is noted to be fair. No side effects to the medications are noted. The patient is denying any auditory hallucinations, but the patient seems to be too sleepy with the Seroquel that was given and I would rather discontinue the Seroquel and continue the patient on just a 7.5 mg of the Remeron and discharge the patient for followup on outpatient basis. JOB# [id number]
--- NOTE | 2018-01-08 13:16 | Progress Notes ---
DATE: 01/07/2018 INTERNAL MEDICINE CONSULTATION FOLLOWUP CURRENT MEDICAL PROBLEMS: Include hypertension, arthritis, anemia, peptic ulcer disease, gastritis, urinary urgency. OBJECTIVE: VITAL SIGNS: Stable. No new symptoms. CHEST: Lungs are clear. HEART: First and second heart sounds are normal. No gallop. Systolic present. ABDOMEN: Soft. Bowel sounds are good. EXTREMITIES: Show arthritis. NEUROLOGIC: The patient has dementia. PLAN: Current medical management continue. Psychotropic consult reviewed. JOB# [id number]
--- NOTE | 2018-01-09 00:27 | Progress Notes ---
DATE: 01/08/2018 INTERNAL MEDICINE CONSULTATION FOLLOWUP HISTORY OF PRESENT ILLNESS: The patient is an 87-year-old female, current medical problems include hypertension, urinary urgency, arthritis, coronary artery disease, peptic ulcer disease, gastritis, and anemia. CHIEF COMPLAINT: No new symptoms. OBJECTIVE: VITAL SIGNS: Stable. LUNGS: Clear. HEART: First and second heart sounds normal. Systolic murmur present. ABDOMEN: Soft. Bowel sounds good. EXTREMITIES: Show arthritis. ASSESSMENT: The patient has dementia. MEDICAL DIAGNOSES: Remain the same. PLAN: Continue current medical management. Psych consult reviewed. JOB# [id number]
== END 2018-01-08 14:50 | DRG 885 ==
LOC: ER 11:05 → GERO2 12:50
PROVIDERS: ADMIT Psychiatry & Neurology Psychiatry; ATTEND Psychiatry & Neurology Psychiatry
DX: F29 Unspecified psychosis not due to a substance or known physiological condition (principal); F03.91 Unspecified dementia, unspecified severity, with behavioral disturbance; E87.1 Hypo-osmolality and hyponatremia; I10 Essential (primary) hypertension; E78.5 Hyperlipidemia, unspecified; M19.90 Unspecified osteoarthritis, unspecified site; F31.9 Bipolar disorder, unspecified; K27.9 Peptic ulcer, site unspecified, unspecified as acute or chronic, without hemorrhage or perforation; D64.9 Anemia, unspecified; R39.15 Urgency of urination; K29.70 Gastritis, unspecified, without bleeding; Z82.49 Family history of ischemic heart disease and other diseases of the circulatory system
CPT/HCPCS: 36415-UA; 80053-TC; 80061-TC; 80307; 80320-TC; 80329-TC; 81003-TC; 83036-90; 84443-TC; 84484-TC; 85025-TC; 86592-TC; 93005; X5958; Z7610